=== PATIENT | male | born 1975 | race Caucasian/White ===

== ENCOUNTER 2016-10-20 12:32 | Day surgery (SDC) | payer MEDICARE ==
[~2016-10-20] VITALS: Ht 175.3 cm; Wt 86.4 kg
[2016-10-20] MEDS ORDERED: PROZAC20 MG PO (15:35)
[2016-10-20] MEDS ORDERED: XANAX1 MG PO (15:35)
[2016-10-20] MEDS ORDERED: SOMA350 MG PO (15:36)
[2016-10-20] MEDS ORDERED: TALWIN NX1 TAB PO (15:36)
[2016-10-20] MEDS ORDERED: DAKLINZA PO (15:37)
[2016-10-20] MEDS ORDERED: SOVALDI400 MG PO (15:37)
[2016-10-20] MEDS ORDERED: VRAYLAR3 MG PO (15:38)
[2016-10-20 15:43] VITALS: BP 121/89; Ht 175.3 cm; Wt 86.4 kg
[2016-10-20 16:33] LABS: BASOPHILS 0.3 % (0.0-2.0); HEMATOCRIT 46.5 % (42.0-54.0); HEMOGLOBIN 15.8 g/dL (13.5-17.5); IMMATURE GRANULOCYTES 0.4 % (0-5); LYMPHOCYTES 32.9 % (15-50); MCV 94.3 fL (80.0-100.0); MEAN PLATELET VOLUME 9.7 fL (7.4-10.4); MONOCYTES 4.3 % (2-11); NEUTROPHILS 59.1 % (40-80); PLATELET COUNT 218 10x3/uL (130-400); RBC 4.93 10x6/uL (4.20-6.10); RDW 13.8 % (11.5-14.5)
[2016-10-20 16:44] LABS: APTT 27.7 SECONDS (22.8-39.4); INR 0.9 (0.85-1.17)
[2016-10-20 17:00] LABS: ALBUMIN 4.1 g/dL (3.4-5.0); ALKALINE PHOSPHATASE 86 U/L (46-116); ALT (SGPT) 39 U/L (10-68); BILIRUBIN - TOTAL 0.33 mg/dL (0.2-1.3); CALC OSMOLALITY 280 mosm/kg (275-300); CALCIUM 9.2 mg/dL (8.5-10.1); CHLORIDE - SERUM 105 mmol/L (98-107); CREATININE - SERUM 0.8 mg/dL (0.6-1.3); GLUCOSE 90 mg/dL (74-106); POTASSIUM - SERUM 4.6 mmol/L (3.5-5.1); PROTEIN - SERUM 7.9 g/dL (6.4-8.2); SODIUM 141 mmol/L (136-145); UREA NITROGEN 13 mg/dL (7-18); eGFR NON AFRICAN AMERICAN > 90 mL/min (90-120)
--- NOTE | 2016-10-20 17:12 | NUR ---
1700-RECD FROM GI LAB. ALERT. RESP WITH EASE. FULL LIQUIDS SERVED, NO NAUSEA. IV PATENT,
--- NOTE | 2016-10-20 17:49 | NUR ---
1735-D/C HOME VIA WHEELCHAIR.
--- NOTE | 2016-10-25 10:50 | OP ---
PATIENT NAME: ANNI ANGEL MEDICAL RECORD: [id number] :77 LOCATION:[facility] ADMISSION DATE: SURGEON: MARIAM ASHTON DO DATE OF OPERATION: 10/20/2016 PROCEDURE: EGD with biopsies. SCOPE: Olympus video gastroscope. MEDICATIONS: Propofol 350 mg IV. INDICATIONS FOR PROCEDURE: History of hepatitis C treated, evaluation for esophageal varices. FINDINGS: Informed consent was given. The patient was made comfortable with the above medication. After reaching an adequate level of sedation by slow IV push, the patient was placed on his left side. The endoscope was then advanced under direct visualization through the mouth to the second portion of the duodenum. The upper and middle esophagus appeared normal. In the distal esophagus, there was some evidence of grade I esophageal varices without bleeding stigmata, no intervention was performed. At the GE junction, there was some esophagitis with ulceration in one location, which was superficial and clean base. The endoscope was advanced beyond the GE junction into the stomach and retroflexed to view the cardia, where a small sliding hiatal hernia was present. The entire stomach exhibited congestion of the edema consistent with portal hypertensive gastropathy. Random biopsies were taken in the antrum, incisura and body to submit for histology and rule out H. pylori. Scope was advanced beyond the pylorus into the duodenal bulb and second portion of the duodenum which appeared normal. The scope was then withdrawn from the patient. The patient tolerated the procedure well and there were no complications. ESTIMATED BLOOD LOSS: Less than 5 cc. IMPRESSION: 1. Grade I esophageal varices without bleeding stigmata. 2. Esophagitis and a single ulceration at the gastroesophageal junction. 3. Small sliding hiatal hernia. 4. Portal hypertensive gastropathy. PLAN AND RECOMMENDATIONS: 1. Discharge home when recovery parameters are met. 2. Continue current diet. 3. Reflux precautions. 4. Omeprazole 40 mg daily in the morning for 8 weeks to heal the esophagitis ulceration. 5. Follow up on biopsy specimens. 6. Follow up in the GI clinic as previously scheduled or as needed. TRANSINT:[id number] Voice Confirmation ID: [id number] DOCUMENT ID: [id number] OPERATIVE REPORT [id number] ANNI ANGEL MARIAM ASHTON DO at 1050 CC: [id number] DICTATION DATE: 10/20/16 0163 BUCKLE COVERER: 10/20/162009 [facility] 10/20/16 [place] [id number] [place] [id number]
== END 2016-10-20 17:35 | disposition home or self-care (01) ==
LOC: D.OPS 12:32
PROVIDERS: Anesthesiology
DX: I85.00 Esophageal varices without bleeding (principal); F17.200 Nicotine dependence, unspecified, uncomplicated; B19.20 Unspecified viral hepatitis C without hepatic coma; K76.6 Portal hypertension; K31.89 Other diseases of stomach and duodenum